=== PATIENT | male | born 1955 | race Caucasian/White ===

== ENCOUNTER 2025-02-02 21:46 | Emergency (ER) | payer MEDICARE, OTHER, SELFPAY ==
[2025-02-02 21:52] VITALS: BP 136/78
[2025-02-02 23:52] LABS: Urine Character Cloudy (Clear)
--- NOTE | 2025-02-02 23:59 | ED.GENMED ---
History of Present Illness
General
Chief Complaint: Male Genito-Urinary Symptoms
Source: patient and spouse
Time Seen by Provider: 02/02/25 23:16
History of Present Illness
History of Present Illness:
69-year-old male with past medical history of atrial fibrillation, hypertension, hyperlipidemia, BPH presenting to the emergency department for evaluation after he had his Joiner catheter removed today but shortly after going home he has been unable
to urinate again. Patient states he did complete a course of antibiotics, cefpodoxime, but was advised to discontinue this medication today. Patient is without fevers, chills, rigors. He does state that he is supposed to undergo a video
obstructions this coming Sunday in [place] and has a follow-up visit scheduled with urologist, Dr. Ho.
Past History
Past History
ED Past Medical History: Arrthythmia, HTN, Hypercholesterolemia and Other (BPH)
Social History
Tobacco: Non-smoker
Alcohol: None
Drug: None
Personal:
Living: with family
Review of Systems
Review of Systems
All Other Systems: ROS reviewed and negative except as documented in HPI and ROS
Phy Exam
Physical Exam
Physical Exam:
GENERAL: Alert , in no apparent distress
EYE: conjunctiva clear
Head: Normocephalic atraumatic
NECK: Supple,
ENT: mmm.
LUNGS: no acute respiratory distress
ABDOMEN: Soft, nontender, nondistended
NEUROLOGICAL: Alert and oriented
SKIN: Warm and dry, skin intact.
MUSCULOSKELETAL: well perfused.
PSYCH: Normal and appropriate interaction.
Scores
Heart Failure Risk
Heart Failure Risk Score: Not Applicable
Heart Score for Chest Pain Patients
STEMI patient?: Not applicable
Withdrawal Assessment of Alcohol
Withdrawal Assessment Completed?: Not applicable
Course
Orders/Labs/Results
Orders:
Orders
02/02/25 23:22
Urinalysis Urgent
Date Specimen was Collected: 02/02/25
Time Specimen was Collected: 23:20
Urine Microscopic Urgent
Date Specimen was Collected: 02/02/25
Time Specimen was Collected: 23:20
Urine Culture Urgent
BARBARA Source: Urine
Specimen Description:
Obtained by: Straight Cath
Date Specimen was Collected: 02/02/25
Time Specimen was Collected: 23:20
02/02/25 23:24
Joiner [Joiner Placement- Treatment] ONCE
Reason for insertion: Acute Retention
02/03/25 00:05
Cefuroxime Axetil [Ceftin] 500 mg PO NOW STA
Abnormal Lab Results
02/02/25
23:22
Urine Occult Blood 4+ A
(Negative)
Urine Nitrite Positive A
(Negative)
Ur Leukocyte Esterase 3+ A
(Negative)
Urine Albumin 3+ A
(Neg - Trace)
Vital Signs
Initial and Last Documented VS:
Initial Vital Signs
Temp Pulse Resp BP Pulse Ox
97.8 F 66 16 136/78 98
02/02/25 21:52 02/02/25 21:52 02/02/25 21:52 02/02/25 21:52 02/02/25 21:52
Last Documented Vital Signs
Temp Pulse Resp BP Pulse Ox
97.8 F 66 16 136/78 98
02/02/25 21:52 02/02/25 21:52 02/02/25 21:52 02/02/25 21:52 02/02/25 23:59
MDM/Problems Addressed
Differential Diagnosis Includes:
BPH
Cystitis
pyelonephritis
Prostatitis
urinary outlet obstruction
Urethral stricture
MDM/Problems Addressed:
69-year-old male presenting the ER for recurring urinary retention. Bedside bladder scan showed greater than 400 mL of urine. Joiner catheter placed, urine is dark jesus in color, moderate to large amount of sediment. Will resume patient back on
cefpodoxime. Encourage patient to contact his urology team in the morning for further recommendations and follow-up. Patient and both aware of return precautions to the ER.
*Pulse Oximetry
SaO2: 98
Oxygen Mode of Delivery: Room air
Patient hypoxic: no
*Critical Care Note
Total Time (30-74mins, 75-104mins- exclusive of procedures): Not Applicable
Data Reviewed
Review of Other/Old Records Reveals: Records and Discharge Summary
ED Attending Note
-
Portions of this chart may have been created with voice recognition software.� Occasional wrong word or��sound alike� substitutions may have occurred due to the inherent limitations of voice recognition software.
Discharge Plan
Departure
Patient Disposition: Home (Routine Discharge)
Date of Disposition: 02/02/25
Time of Disposition: 23:59
Patient with high blood pressure during this ER visit?: No
Discharge Problem:
Acute urinary retention
Instructions: Urinary Retention (DC)
Prescriptions:
New
cefpodoxime 200 mg tablet
200 mg PO BID 7 Days Qty: 14 0RF
Referrals:
Guillermo Keenan MD [Family Provider, Internal Medicine]
Interventions
Interventions:
*Risk Screen - Suicide Last Done: 02/02/25 23:30
*General Assessment Last Done: 02/02/25 23:30
*Neglect/Abuse Screening Last Done: 02/02/25 23:30
*ED- Fall Risk Assessment Last Done: 02/02/25 23:30
*ED COVID-19 Vaccine History Last Done: 02/02/25 23:30
ED-Male Genitourinary Assessment Last Done: 02/02/25 23:30
Discharge Date and Time
Print Language: MALAWIAN
[2025-02-03] MEDS: CEFTIN 500 MG PO (00:09)
[2025-02-03 00:36] LABS: Urine Red Blood Cell 0-2 /HPF (0-2); Urine White Cell >100 /HPF (0-5)
== END 2025-02-03 00:38 | disposition home or self-care (01) ==
LOC: EMR 21:46
PROVIDERS: Physician Assistant Medical; EMERGENCY PHYSICIAN Emergency Medicine; FAMILY PHYSICIAN Internal Medicine
DX: N40.1 Benign prostatic hyperplasia with lower urinary tract symptoms (principal); R33.8 Other retention of urine; E78.00 Pure hypercholesterolemia, unspecified; I10 Essential (primary) hypertension; I48.91 Unspecified atrial fibrillation
CPT/HCPCS: 51702; 99283; 81003; 81015; 87086; 87088